=== PATIENT | male | born 1960 | race Caucasian/White ===

== ENCOUNTER 2020-07-26 15:51 | Emergency (ER) | payer MEDICARE ==
[~2020-07-26] VITALS: Ht 165.1 cm; Wt 82.0 kg
[2020-07-26 16:05] VITALS: BP 137/73
[2020-07-26] MEDS ORDERED: KETOROLAC 60MG/2ML VIAL IM ONE (16:15)
== END 2020-07-26 18:00 | disposition home or self-care (01) ==
LOC: ER 15:51
DX: M54.40 Lumbago with sciatica, unspecified side (principal)
CPT/HCPCS: 72100; 96372; 99283; J1885

== ENCOUNTER 2021-05-03 06:32 | Emergency (ER) | payer MEDICARE, MEDICAID ==
[~2021-05-03] VITALS: Ht 165.1 cm; Wt 86.0 kg
[2021-05-03 06:39] VITALS: BP 128/65
[2021-05-03] MEDS ORDERED: B50 PO (07:14)
[2021-05-03] MEDS ORDERED: LORAZEPAM 1MG TABLET PO ONE (07:15)
== END 2021-05-03 09:06 | disposition home or self-care (01) ==
LOC: ER 06:32
DX: T78 Adverse effects, not elsewhere classified (principal); G47.00 Insomnia, unspecified; Z98.890 Other specified postprocedural states
CPT/HCPCS: 99283

== ENCOUNTER 2023-06-11 11:23 | Emergency (ER) | payer MEDICARE, MEDICAID ==
[~2023-06-11] VITALS: Ht 165.1 cm; Wt 79.4 kg
[~2023-06-11 11:23] MED LIST: B50 PO
[2023-06-11 11:51] VITALS: TEMP 98.2; O2SAT 97
[2023-06-11] MEDS ORDERED: IBUPROFEN 600MG TABLET PO ONE (12:15)
[2023-06-11] MEDS ORDERED: DEXAMETHASONE 1MG TABLET PO ONE (12:15)
[2023-06-11] MEDS ORDERED: METH-653 MT (12:17)
[2023-06-11] MEDS ORDERED: DEXAMETHASONE 2MG TABLET PO NR (12:30)
[2023-06-11] MEDS ORDERED: IBUPROFEN 600MG TABLET PO NR (12:30)
[2023-06-11 12:59] VITALS: BP 148/60; PULSE 56; RESP 20
== END 2023-06-11 13:05 | disposition home or self-care (01) ==
LOC: ER 11:23
DX: M54.50 Low back pain, unspecified (principal)
CPT/HCPCS: 99283; J8540